=== PATIENT | male | born 1980 | race Caucasian/White ===

== ENCOUNTER 2019-06-20 11:27 | Emergency (ER) | payer SELFPAY ==
[~2019-06-20] VITALS: Wt 118.1 kg
[~2019-06-20 11:27] MED LIST: CEPHALEXIN500 M1 PO; NORCO 325 MG-51 TA1 PO
[2019-06-20] MEDS ORDERED: EPIPEN 2-PAK1 MG/ML MR (12:07)
[2019-06-20 12:25] VITALS: BP 156/91
== END 2019-06-20 12:36 | disposition home or self-care (01) ==
LOC: ED 11:27
DX: T78.2XXA Anaphylactic shock, unspecified, initial encounter (principal); F17.210 Nicotine dependence, cigarettes, uncomplicated; W57.XXXA Bitten or stung by nonvenomous insect and other nonvenomous arthropods, initial encounter
CPT/HCPCS: J0171; J1100; J1200; J3490